=== PATIENT | female | born 1965 | race African-American/Black ===

== ENCOUNTER 2020-02-14 11:54 | Emergency (ER) | payer OTHER ==
[~2020-02-14] VITALS: Ht 167.6 cm; Wt 89.1 kg
[2020-02-14 13:52] LABS: BILIRUBIN,URINE NEGATIVE (NEG); CLARITY,URINE CLOUDY; COLOR,URINE YELLOW; NITRITE,URINE NEGATIVE (NEG); PH,URINE 5.5 (<5.0-8.0); PROTEIN,URINE NEGATIVE (NEG-TRACE); UROBILINOGEN,URINE 0.2 mg/dL (0.2 mg/dL)
[2020-02-14 14:07] LABS: BASO % 0 % (0-3); EOS # 0.1 x10^3/uL (0.0-0.7); EOS % 1 % (0-3); HEMATOCRIT 38.2 % (36.0-47.0); HEMOGLOBIN 13.6 g/dL (12.0-15.5); LYMPH # 2.3 x10^3/uL (1.0-4.8); LYMPH % 36 % (24-48); MEAN CORPUSCULAR HEMOGLOBIN 33 pg (25-35); MEAN CORPUSCULAR HGB CONC 36 g/dL (31-37); MEAN CORPUSCULAR VOLUME 92 fL (79-100); MONO # 0.5 x10^3/uL (0.0-1.1); MONO % 7 % (0-9); NEUT # 3.5 x10^3/uL (1.8-7.7); NEUT % 55 % (31-73); PLATELET COUNT 195 x10^3/uL (140-400); RED BLOOD COUNT 4.16 x10^6/uL (3.50-5.40); RED CELL DISTRIBUTION WIDTH 14.6 % (11.5-14.5); WHITE BLOOD COUNT 6.3 x10^3/uL (4.0-11.0)
[2020-02-14 14:14] LABS: CALCIUM 9.3 mg/dL (8.5-10.1); GFR 70.2; POTASSIUM 3.9 mmol/L (3.5-5.1)
[2020-02-14 14:18] LABS: BACTERIA,URINE MANY /HPF (0-FEW); RBC,URINE OCC /HPF (0-2); SQUAMOUS EPITHELIAL CELL,UR MANY /LPF; TRICHOMONAS,URINE PRESENT; WBC,URINE >40 /HPF (0-4)
[2020-02-14 14:20] LABS: ALBUMIN 3.7 g/dL (3.4-5.0); ALBUMIN/GLOBULIN RATIO 0.9 (1.0-1.7); MAGNESIUM 1.9 mg/dL (1.8-2.4); TOTAL BILIRUBIN 0.4 mg/dL (0.2-1.0); TOTAL PROTEIN 7.6 g/dL (6.4-8.2)
--- NOTE | 2020-02-14 15:12 | RAD ---
CT Abdomen and Pelvis without contrast History: Left lower quadrant abdominal pain, diarrhea Technique: Noncontrast CT imaging was performed of the abdomen and pelvis. Multiplanar images are reviewed. Exposure: One or more of the following individualized dose reduction techniques were utilized for this examination: 1. Automated exposure control 2. Adjustment of the mA and/or kV according to patient size 3. Use of iterative reconstruction technique. Comparison: None Findings: No urolithiasis or hydronephrosis is identified. There is no abnormality of the limited visualized lung bases. There has been cholecystectomy.Accurate evaluation of abdominal visceral organs is limited without intravenous contrast. There is no obvious abnormality of the spleen, liver, or pancreas. There is no adrenal nodularity. Accurate evaluation of bowel is limited without oral contrast. There is no significant free air, free fluid, bowel dilatation. Accurate evaluation for bowel wall thickening is limited without oral contrast although there is degree of at least mild long segment colonic wall thickening variably of ascending through sigmoid colon. There is mild colonic diverticulosis. There is no significant inflammatory type change about the bowel. Normal caliber appendix is visualized without adjacent inflammatory change. 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 There is some scattered plaque of the abdominal aorta and iliac arteries. There is lumbar degenerative disc disease greatest at L5-S1 and L4-5, also facet degenerative change greater inferiorly of the lumbar spine. Impression: 1. Although difficult to accurately characterize without oral contrast, there is long segment colonic wall thickening evidence of colitis. There is mild colonic diverticulosis. There is no CT evidence of acute appendicitis. Electronically signed by: Abram Chow MD (02/14/2020 3:09 PM) [facility]
[2020-02-14 16:30] VITALS: BP 119/85
[2020-02-14] MEDS ORDERED: AZITHROMYCIN 250 MG TABLET. PO ONE (16:45)
[2020-02-14] MEDS ORDERED: cefTRIAXone IM 250 MG VIAL IM ONE (16:45)
[2020-02-14] MEDS ORDERED: LACT1CAP29 PO (16:47)
[2020-02-14] MEDS ORDERED: METR500T PO (16:47)
--- NOTE | 2020-02-14 16:47 | PHYS DOC ---
Past Medical History Past Medical History: No Pertinent History Past Surgical History: Cholecystectomy, Smoking Status: Never Smoker Alcohol Use: Heavy Additional Information: 6 GLASSES OF WINE DAILY Social History Narrative: LAST USED COCAINE JUN 2019 General Adult EDM: Chief Complaint: ABDOMINAL PAIN HPI: HPI: Patient is a 54 year old AA female who presents to the emergency department with complaints of lower left quadrant abdominal pain for the last 4 days. She states that the pain comes and goes. She also complains of nausea but denies any vomiting. Patient reports that she has had 2 episodes of diarrhea today. She denies any blood in her stools. In addition the patient complains of a foul-smelling vaginal odor for several weeks. She denies any dysuria, hematuria, back pain, or increased urinary frequency. She denies any fever, cough, shortness of breath, chest pain, or palpitations. She currently denies any pain at rest. However she reports increased pain a 5 out of 10 with palpation, she denies any radiation of the pain or alleviating factors. Review of Systems: Review of Systems: Constitutional: Denies fever or chills. [] HENT: Denies nasal congestion or sore throat. [] Respiratory: Denies cough or shortness of breath. [] Cardiovascular: Denies chest pain or edema. [] GI: See HPI : Denies dysuria; see HPI. [] Musculoskeletal: Denies back pain or joint pain. [] Integument: Denies rash. [] Neurologic: Denies headache, focal weakness or sensory changes. [] Psychiatric: Denies depression or anxiety. [] Heart Score: Risk Factors: Risk Factors: DM, Current or recent (<one month) smoker, HTN, HLP, family history of CAD, obesity. Risk Scores: Score 0 - 3: 2.5% MACE over next 6 weeks - Discharge Home Score 4 - 6: 20.3% MACE over next 6 weeks - Admit for Clinical Observation Score 7 - 10: 72.7% MACE over next 6 weeks - Early Invasive Strategies Allergies: Allergies: Allergies Coded Allergies Type Severity Reaction Last Updated Verified Iodinated Contrast Media Allergy Severe HIVES 02/14/20 Yes Physical Exam: PE: Constitutional: Well developed, well nourished, no acute distress, non-toxic appearance, obese HENT: Normocephalic, atraumatic, bilateral external ears normal, nose normal. Eyes: PERRLA, EOMI, conjunctiva normal, no discharge. Neck: Normal range of motion, no stridor. Cardiovascular: Heart rate regular rhythm Lungs & Thorax: Respirations even and unlabored, no retractions, no respiratory distress Pelvic Exam: [employer] present Marybeth SCHILLING Abdomen: Soft, active bowel sounds x4 quadrants, lower left quadrant tenderness to palpation, no rebound tenderness, no guarding External Genitalia: Normal Skin Speculum: Normal vaginal mucosa, large amount of malodorous yellow-tinged cervical discharge present, cervix is nonfriable Bimanual: No adnexal masses or tenderness, No CMT Skin: Warm, dry, no erythema, no rash. Extremities: No cyanosis, ROM intact, no edema. Neurologic: Alert and oriented X 3, no focal deficits noted. Psychologic: Affect normal, judgement normal, mood normal. Current Patient Data: Labs: Laboratory Tests Test 02/14/20 13:25 02/14/20 13:50 Urine Collection Type Unknown Urine Color Yellow Urine Clarity Cloudy Urine pH 5.5 (<5.0-8.0) Urine Specific [employer] 1.015 (1.000-1.030) Urine Protein Negative mg/dL (NEG-TRACE) Urine Glucose (UA) Negative mg/dL (NEG) Urine Ketones (Stick) Negative mg/dL (NEG) Urine Blood Small (NEG) Urine Nitrite Negative (NEG) Urine Bilirubin Negative (NEG) Urine Urobilinogen Dipstick 0.2 mg/dL (0.2 mg/dL) Urine Leukocyte Esterase Large (NEG) Urine RBC Occ /HPF (0-2) Urine WBC >40 /HPF (0-4) Urine Squamous Epithelial Cells Many /LPF Urine Bacteria Many /HPF (0-FEW) Urine Mucus Marked /LPF Urine Trichomonas Present White Blood Count 6.3 x10^3/uL (4.0-11.0) Red Blood Count 4.16 x10^6/uL (3.50-5.40) Hemoglobin 13.6 g/dL (12.0-15.5) Hematocrit 38.2 % (36.0-47.0) Mean Corpuscular Volume 92 fL (79-100) Mean Corpuscular Hemoglobin 33 pg (25-35) Mean Corpuscular Hemoglobin Concent 36 g/dL (31-37) Red Cell Distribution Width 14.6 % (11.5-14.5) H Platelet Count 195 x10^3/uL (140-400) Neutrophils (%) (Auto) 55 % (31-73) Lymphocytes (%) (Auto) 36 % (24-48) Monocytes (%) (Auto) 7 % (0-9) Eosinophils (%) (Auto) 1 % (0-3) Basophils (%) (Auto) 0 % (0-3) Neutrophils # (Auto) 3.5 x10^3/uL (1.8-7.7) Lymphocytes # (Auto) 2.3 x10^3/uL (1.0-4.8) Monocytes # (Auto) 0.5 x10^3/uL (0.0-1.1) Eosinophils # (Auto) 0.1 x10^3/uL (0.0-0.7) Basophils # (Auto) 0.0 x10^3/uL (0.0-0.2) Sodium Level 143 mmol/L (136-145) Potassium Level 3.9 mmol/L (3.5-5.1) Chloride Level 108 mmol/L (98-107) H Carbon Dioxide Level 25 mmol/L (21-32) Anion Gap 10 (6-14) Blood Urea Nitrogen 15 mg/dL (7-20) Creatinine 1.0 mg/dL (0.6-1.0) Estimated GFR (Cockcroft-Gault) 70.2 BUN/Creatinine Ratio 15 (6-20) Glucose Level 105 mg/dL (70-99) H Calcium Level 9.3 mg/dL (8.5-10.1) Magnesium Level 1.9 mg/dL (1.8-2.4) Total Bilirubin 0.4 mg/dL (0.2-1.0) Aspartate Amino Transferase (AST) 21 U/L (15-37) Alanine Aminotransferase (ALT) 19 U/L (14-59) Alkaline Phosphatase 91 U/L (46-116) Total Protein 7.6 g/dL (6.4-8.2) Albumin 3.7 g/dL (3.4-5.0) Albumin/Globulin Ratio 0.9 (1.0-1.7) L Laboratory Tests 02/14/20 13:50 Laboratory Tests 02/14/20 13:50 Vital Signs: Vital Signs Date Time Temp Pulse Resp B/P (MAP) Pulse Ox O2 Delivery O2 Flow Rate FiO2 02/14/20 13:38 99.0 71 18 133/79 (97) 98 Room Air 99.0 EKG: EKG: [] Radiology/Procedures: Radiology/Procedures: PROCEDURE: CT ABDOMEN PELVIS WO CONTRAST CT Abdomen and Pelvis without contrast History: Left lower quadrant abdominal pain, diarrhea Technique: Noncontrast CT imaging was performed of the abdomen and pelvis. Multiplanar images are reviewed. Exposure: One or more of the following individualized dose reduction techniques were utilized for this examination: 1. Automated exposure control 2. Adjustment of the mA and/or kV according to patient size 3. Use of iterative reconstruction technique. Comparison: None Findings: No urolithiasis or hydronephrosis is identified. There is no abnormality of the limited visualized lung bases. There has been cholecystectomy.Accurate evaluation of abdominal visceral organs is limited without intravenous contrast. There is no obvious abnormality of the spleen, liver, or pancreas. There is no adrenal nodularity. Accurate evaluation of bowel is limited without oral contrast. There is no significant free air, free fluid, bowel dilatation. Accurate evaluation for bowel wall thickening is limited without oral contrast although there is degree of at least mild long segment colonic wall thickening variably of ascending through sigmoid colon. There is mild colonic diverticulosis. There is no significant inflammatory type change about the bowel. Normal caliber appendix is visualized without adjacent inflammatory change. 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 There is some scattered plaque of the abdominal aorta and iliac arteries. There is lumbar degenerative disc disease greatest at L5-S1 and L4-5, also facet degenerative change greater inferiorly of the lumbar spine. Impression: 1. Although difficult to accurately characterize without oral contrast, there is long segment colonic wall thickening evidence of colitis. There is mild colonic diverticulosis. There is no CT evidence of acute appendicitis.[] Course & Med Decision Making: Course & Med Decision Making Pertinent Labs and Imaging studies reviewed. (See chart for details) 54-year-old female presented to the emergency department with complaints of intermittent lower left quadrant abdominal pain, nausea, and diarrhea that began 2 days ago; she also complained of foul-smelling vaginal discharge for several months. Urinalysis revealed trichomonas present, CT revealed long segment colonic wall thickening evidence of colitis and mild colonic diverticulosis, there is no evidence of acute appendicitis. CBC is unremarkable; CMP revealed a chloride of 108, glucose of 105, otherwise unremarkable Patient was treated prophylactically with 250 mg of IM Rocephin, and 1 g of PO Zithromax. Patient was instructed to avoid having intercourse until the results of gonorrhea and chlamydia testing are available, patient was notified that t hese results would not be available for 48 hours. If one or both of these tests is positive, patient needs to refrain from intercourse for approximately 1 week following the treatment of any current partners. Prescription was written for Flagyl 500 mg p.o. twice daily x7 days. Patient verbalized an understanding of home care, medications, follow-up, and return to ED instructions and was in agreement with the plan of care. Dragon Disclaimer: Draganastacia Disclaimer: This electronic medical record was generated, in whole or in part, using a voice recognition dictation system. Departure Departure Impression: Primary Impression: Trichomonal vaginitis Additional Impressions: Abdominal pain Qualified Codes: R10.32 - Left lower quadrant pain Diarrhea Qualified Codes: R19.7 - Diarrhea, unspecified Contact with and (suspected) exposure to infections with a predominantly sexual mode of transmission Disposition: HOME, SELF-CARE Condition: STABLE Referrals: NO PCP (PCP) Patient Instructions: Abdominal Pain (Nonspecific), Diet for Diarrhea, Adult, Trichomoniasis-Brief Additional Instructions: Fill the prescription and use as directed. Follow the diet instructions provided. Recommend that you go to your local health department for comprehensive sexually transmitted disease testing. You have been treated for a suspected gonorrhea and chlamydia. Avoid having intercourse until the results of gonorrhea and chlamydia testing are available, these results will not be available for 48 hours. If one or both of these tests is positive, you need to refrain from intercourse for approximately 1 week following the treatment of any current partners. Follow-up with your primary care doctor in 1 to 2 days, retur n to the ER if symptoms worsen. Scripts Lactobacillus Combo No.10 (PROBIOTIC) 1 Each Capsule 1 TAB PO DAILY for 7 Days, #7 TAB 0 Refills Prov: CARI DE LA ROSA APRN 02/14/20 Metronidazole (FLAGYL) 500 Mg Tablet 1 TAB PO BID, #14 TAB 0 Refills Prov: CARI DE LA ROSA APRN 02/14/20 Justicifation of Admission Dx: Justifications for Admission: Justification of Admission Dx: N/A CARI DE LA ROSA [employer] Feb 14, 2020 16:47
[2020-02-15 22:08] LABS: GC PROBE Negative (Negative)
== END 2020-02-14 17:29 | disposition home or self-care (01) ==
LOC: ER 11:54
DX: A59.01 Trichomonal vulvovaginitis (principal); R10.32 Left lower quadrant pain; R19.7 Diarrhea, unspecified; F10.10 Alcohol abuse, uncomplicated; Z90.49 Acquired absence of other specified parts of digestive tract; Z98.890 Other specified postprocedural states; Z91.040 Latex allergy status
CPT/HCPCS: 36415; 74176; 80053; 81001; 83735; 85025; 87086; 87491; 87591; 96372; 99284; J0696; Q0111

== ENCOUNTER → 2020-12-19 | Outpatient (CLI) | payer OTHER ==
[~2020-12-19] MED LIST: LACT1CAP29 PO; METR500T PO
--- NOTE | 2020-12-19 11:18 | RAD ---
DATE: December 19, 2020 EXAM: DIGITAL DIAGNOSTIC BILATERAL, BREAST LEFT HISTORY: History of benign left breast biopsy. The patient states that the lump in this area has recently increased in size. COMPARISON: 2015 This study was interpreted with the benefit of Computerized Aided Detection (CAD). DIAGNOSTIC MAMMOGRAPHIC FINDINGS: Breast Density: FATTY The breast parenchyma is primarily fatty replaced. Breast parenchyma level density A.. In the region of the palpable abnormality as indicated by the skin marker, there are 3 findings. There are 2 coils cysts seen adjacent to one another. More medially and inferiorly, there is a small 6 mm nodule. Biopsy clip is seen adjacent to this nodule. The biopsy clip is seen adjacent to the more posterior oil cyst. All 3 of these findings are stable in size from the previous mammogram. Many calcifications in the cervical previously have been resorbed. A few scattered coarse benign-appearing locations in this area. There are coarse benign-appearing callus cases of the right breast. No new breast mass is seen on on either side. LEFT BREAST SONOGRAPHY: High-resolution sonography of the palpable lump of the 10:00 position as indicated by the patient was performed. There are 3 findings. The first finding is a 16 mm cyst located 6 cm from the nipple. The second finding is a cyst measuring 13 mm located 6 cm from the nipple. Both of these cysts correspond to the oil cysts seen on the mammogram. The third finding is a hypoechoic nodule 5 cm from the nipple measuring 7 mm in greatest dimension. It demonstrates a thin echogenic capsule around it with smooth margins. There is no lobulation. It is wider than it is tall. Therefore, it fulfills benign type criteria and corresponds to the small nodule seen on the mammogram inferiorly and medially. A biopsy clip is seen in this area on the mammogram. It is unchanged in size from the 2015 mammogram. Therefore, this may represent a small fibroadenoma. IMPRESSION: 2 benign oil cysts and a small stable benign nodule of the left breast correspond to the area of palpable abnormality. No new mammographic abnormality is seen. Specifically, there are no mammographic indicators for malignancy. BI-RADS CATEGORY: 2 BENIGN FINDING RECOMMENDED FOLLOW-UP: 12M 12 MONTH FOLLOW-UP PQRS compliance statement: Patient information was entered into a reminder system with a target due date December 20, 2020 for the next mammogram. Mammography is a sensitive method for finding small breast cancers, but it does not detect them all and is not a substitute for careful clinical examination. A negative mammogram does not negate a clinically suspicious finding and should not result in delay in biopsying a clinically suspicious abnormality. "Our facility is accredited by the [employer] Mammography Program." The patient's breast density may affect the ability of mammography to detect breast cancer. There are 4 categories of breast density, A, B, C and D. Breast density A means that most of the breast tissue is replaced with adipose tissue and therefore is not dense. Breast density B means that the breast tissue is mildly dense and scattered. Breast density C means that the breast tissue is heterogeneously dense. Breast density D means that the breast tissue is very dense. Breast densities especially C and D may decrease the sensitivity of mammography to detect breast cancer. Therefore, the patient may benefit from 3-D breast mammography (3D breast tomography) as a part of their screening mammogram. Insurance may or may not pay for this additional imaging. The patient's breast density based on today's mammogram is category A.
== END ==
LOC: MAMMO 09:51
PROVIDERS: ATTEND Family Medicine
DX: N60.02 Solitary cyst of left breast (principal); N63.22 Unspecified lump in the left breast, upper inner quadrant
CPT/HCPCS: 76641; 77066